=== PATIENT | female | born 1970 | race Caucasian/White ===

== ENCOUNTER 2023-08-29 21:49 | Day surgery (SDC) | payer OTHER ==
[2023-08-29] MEDS ORDERED: ONDANSETRON 4 MG/2 ML VIAL IVP STA (22:06)
[2023-08-29] MEDS ORDERED: SODIUM CHLORIDE 0.9% 1,000 ML IV STA (22:06)
[2023-08-29] MEDS ORDERED: MORPHINE 10 MG/ML VIAL IVP STA (22:06)
[2023-08-29 22:19] LABS: BASOPHILS % (AUTO) 0.2 %; EOSINOPHILS % (AUTO) 0.2 %; HCT - HEMATOCRIT 39.2 % (37.0-47.0); HGB - HEMOGLOBIN 11.7 g/dL (12.0-16.0); LYMPHOCYTES # (AUTO) 1.3 10^3/uL (1.5-3.5); LYMPHOCYTES % (AUTO) 11.8 %; MEAN CORPUSCULAR HEMOGLOBIN 22.4 pg (27.0-31.0); MEAN CORPUSCULAR HGB CONC 29.8 g/dL (32.0-36.0); MEAN CORPUSCULAR VOLUME 75.1 fL (81.0-99.0); MEAN PLATELET VOLUME 8.6 fL (7.9-10.8); MONOCYTES # (AUTO) 0.8 10^3/uL (0.0-1.0); MONOCYTES % (AUTO) 6.9 %; NEUTROPHILS # (AUTO) 8.8 10^3/uL (1.5-6.6); NEUTROPHILS % (AUTO) 80.7 %; PLT - PLATELET COUNT 400 10^3/uL (130-450); RED BLOOD COUNT 5.22 10^6/uL (4.20-5.40); RED CELL DISTRIBUTION WIDTH 17.2 % (12.0-15.0); WHITE BLOOD COUNT 10.9 x10^3/uL (4.8-10.8)
--- NOTE | 2023-08-29 22:31 | ED Physician Documentation ---
PD HPI ABD PAIN - Stated complaint Stated Complaint: ABD PX/N/V - Chief complaint Chief Complaint: Abd Pain - History obtained from History obtained from: Patient - Additional information Additional information: 53-year-old woman with mid abdominal pain intermittent for the past several days with associated nonbloody nonbilious nausea and vomiting x10 today. Denies dysuria, diarrhea, fever. Pain is sharp, intermittent, and patient has been unable to have a bowel movement for a few days now. Review of Systems Constitutional: denies: Fever Cardiac: denies: Chest pain / pressure Respiratory: denies: Dyspnea GI: reports: Abdominal Pain, Nausea, Vomiting. denies: Diarrhea : denies: Dysuria PD PAST MEDICAL HISTORY - Allergies Allergies/Adverse Reactions: Allergies Allergy/AdvReac Type Severity Reaction Status Date / Time No Known Drug Allergies Allergy Verified 08/29/23 22:03 PD ED PE NORMAL - Vitals Vital signs reviewed: Yes - General General: Alert and oriented X 3, Well developed/nourished, Other (Uncomfortable appearing) - HEENT HEENT: Atraumatic, PERRL, EOMI, Moist mucous membranes, Pharynx benign - Neck Neck: Supple, no meningeal sign - Cardiac Cardiac: Other (Tachycardic rate, regular rhythm) - Respiratory Respiratory: No respiratory distress, Clear bilaterally - Abdomen Abdomen: Other (Palpable ventral hernia, unable to reduce. Hardening over entire lower abdomen. Some distention of lower abdomen) - Back Back: No CVA TTP - Derm Derm: Normal color, Warm and dry Results - Vitals Vitals: Vital Signs - 24 hr 08/29/23 08/29/23 08/30/23 21:51 23:02 01:00 Temperature 37.0 C Heart Rate 120 H 90 104 H Respiratory 18 18 20 Rate Blood Pressure 130/117 H 129/79 131/85 H O2 Saturation 97 99 95 08/30/23 02:25 Temperature Heart Rate 100 Respiratory 16 Rate Blood Pressure 133/84 H O2 Saturation 96 Oxygen O2 Source Room air - Labs Labs: Laboratory Tests 08/29/23 08/29/23 08/29/23 22:15 22:15 22:15 WBC 10.9 H RBC 5.22 Hgb 11.7 L Hct 39.2 MCV 75.1 L MCH 22.4 L MCHC 29.8 L RDW 17.2 H Plt Count 400 MPV 8.6 Neut # (Auto) 8.8 H Lymph # (Auto) 1.3 L [place] # (Auto) 0.8 Eos # (Auto) 0.0 Baso # (Auto) 0.0 Absolute Nucleated RBC 0.00 Nucleated RBC % 0.0 Sodium 133 L Potassium 3.2 L Chloride 91 L Carbon Dioxide 26 Anion Gap 16.0 H BUN 24 H Creatinine 0.5 L Estimated GFR (MDRD) 129 Glucose 105 H Calcium 9.6 Magnesium 2.0 Total Bilirubin 0.6 AST 30 ALT 42 Alkaline Phosphatase 115 Total Protein 7.7 Albumin 4.7 Globulin 3.0 Albumin/Globulin Ratio 1.6 Lipase 20 PD Medical Decision Making - ED course ED course: 53-year-old woman presents with nonreducible ventral hernia and large lower abdominal mass, likely a uterine fibroid per CT. Discussed with Dr. Jeremy cohen n she has SBO on CT and he will admit to observation to reduce hernia under anesthesia in the morning. Departure - Departure Disposition: ED Place in Observation Clinical Impression: Ventral hernia, SBO (small bowel obstruction), Abdominal mass Condition: Stable Instructions: Hernia Surg Forms: PCP List
[2023-08-29 22:32] LABS: ALBUMIN 4.7 g/dL (3.2-5.5)
[2023-08-29 22:40] LABS: ALBUMIN/GLOBULIN RATIO 1.6 (1.0-2.2); BILIRUBIN,TOTAL 0.6 mg/dL (0.2-1.0); CALCIUM 9.6 mg/dL (8.5-10.3); CREATININE 0.5 mg/dL (0.6-1.3); POTASSIUM 3.2 mmol/L (3.5-4.5); TOTAL PROTEIN 7.7 g/dL (6.4-8.9)
[2023-08-29] MEDS ORDERED: LORazepam 2 MG/ML VIAL IVP STA (22:41)
[2023-08-29] MEDS ORDERED: POTASSIUM CHLOR 10 MEQ/100 ML 10 MEQ/100 ML BAG IV STA (22:42)
[2023-08-29] MEDS ORDERED: LORazepam 2 MG/ML VIAL ONE (23:53)
[2023-08-30] MEDS ORDERED: iohexoL-300 100 ML VIAL IVP ONE (00:43)
--- NOTE | 2023-08-30 01:02 | CT Report ---
PROCEDURE: ABDOMEN/PELVIS W INDICATIONS: ventral hernia CONTRAST: Omni 300 100ml TECHNIQUE: After the administration of intravenous contrast, 5 mm thick sections acquired from the diaphragms to the symphysis. 5 mm thick coronal and sagittal reformats were acquired. For radiation dose reducti on, the following was used: automated exposure control, adjustment of mA and/or kV according to yanet ent size. COMPARISON: None FINDINGS: Visualized lung bases: No pleural effusion. Liver and biliary tree: Nonspecific hypodense structures within the liver could represent cysts and/o r hemangiomata other etiologies not excludable. No biliary ductal dilation demonstrated. Gallbladder: No radiopaque cholelithiasis. Spleen: Unremarkable. Pancreas: Unremarkable. Adrenal glands: 3.2 cm left adrenal nodule Kidneys and ureters: No hydronephrosis. Gastrointestinal tract: Small bowel obstruction with transition point within a periumbilical hernia. Peritoneal cavity: Small amount of free fluid present within the periumbilical hernia sac and within the pelvis. Bladder: Unremarkable. Pelvic organs: Markedly enlarged uterus with multiple masses Vasculature: No abdominal aortic aneurysm. Lymph nodes: No highly suspicious lymph nodes visualized. Musculoskeletal: Degenerative change of the spine. IMPRESSION: 1. Small bowel obstruction with transition point within a periumbilical hernia. Small amount of free fluid present within the periumbilical hernia sac and within the pelvis, nonspecific, could indicate an element of venolymphatic compromise. 2. Markedly enlarged uterus with multiple masses, presumably fibroids. 3. A 3.2 cm left adrenal nodule is present. Further evaluation could be performed with nonemergent ad renal protocol CT without and with contrast. Reviewed by: Jim Merrill MD on 08/30/2023 1:01 AM PDT Approved by: Jim Merrill MD on 08/30/2023 1:01 AM PDT Station ID: [id number]
[2023-08-30] MEDS ORDERED: ONDANSETRON ODT 4 MG TABLET TL PRN (02:40)
[2023-08-30] MEDS ORDERED: ZOLPIDEM 5 MG TABLET PO PRN (02:40)
[2023-08-30] MEDS ORDERED: SODIUM CHLORIDE FLUSH 0.9% 10 ML SYRINGE IVP PRN (02:40)
[2023-08-30 04:00] LABS: GLUCOSE, URINE (UA) NEGATIVE (NEGATIVE); KETONES,URINE (UA) >=80 mg/dL (NEGATIVE); LEUKOCYTE ESTERASE, URINE NEGATIVE (NEGATIVE); NITRITE,URINE NEGATIVE (NEGATIVE); OCCULT BLOOD,URINE NEGATIVE (NEGATIVE); PROTEIN,URINE NEGATIVE (NEGATIVE); UROBILINOGEN,URINE 0.2 (NORMAL) E.U./dL (NORMAL)
[2023-08-30 04:04] LABS: BILIRUBIN,URINE NEGATIVE (NEGATIVE); CLARITY,URINE CLEAR (CLEAR); ICTOTEST,URINE NEGATIVE
[2023-08-30] MEDS: LACTATED RINGERS 1,000 ML IV SCH ×2 (04:10→20:09)
[2023-08-30] MEDS: HYDROmorphone 0.5 MG/0.5 ML SYRINGE IVP PRN ×5 (04:15→23:17)
[2023-08-30] MEDS ORDERED: SODIUM CHLORIDE 0.9% 1,000 ML IV ONE (07:43)
--- NOTE | 2023-08-30 08:34 | HISTORY & PHYSICAL EXAMINATION ---
Chief Complaint - Chief Complaint Chief Complaint: painful hernia bulge and nausea and vomiting History of Present Illness - History Obtained From Records Reviewed: yes History obtained from: pt Exam Limitations: none - History of Present Illness HPI Comment/Other: hernia periumbilical for years. hard and tender for several days and not able to eat food without nausea and vomiting for 5 days. feeling improved now since arrival to ED Meds/Allgy - Allergies Allergies/Adverse Reactions: Allergies Allergy/AdvReac Type Severity Reaction Status Date / Time No Known Drug Allergies Allergy Verified 08/29/23 22:03 Review of Systems - Other Findings Other Findings: 10 pt ros as above otherwise unremarkable Exam - Vital Signs Vital Signs: Vital Signs x48h Temp Pulse Pulse Resp BP BP Pulse Ox 08/30/23 07:52 36.5 C 106 H 18 144/80 H 98 08/30/23 04:12 36.9 C 96 16 147/77 H 96 08/30/23 02:25 100 16 133/84 H 96 08/30/23 01:00 104 H 20 131/85 H 95 - Physical Exam General Appearance: positive: No acute distress, Alert Eyes Bilateral: positive: PERRL, EOMI, No scleral icterus ENT: positive: No signs of dehydration Neck: positive: No JVD, Trachea midline Respiratory: positive: No respiratory distress Cardiovascular: positive: Regular rate & rhythm Abdomen: positive: Other (hard 5 cm hernia mass just cephalad of the umbilicus. minimal tenderness. benign abdomen other than large pelvic mass nearly 20 x 20 cm) Neurologic/Psychiatric: positive: Oriented x3 Conclusion/Plan - Problem List (1) SBO (small bowel obstruction) Conclusion/Plan: high grade sbo related to incarcerated ventral hernia. plan ex lap later today. parq held and verbal consent obtained ivf bolus for dehydration - Lab Results Fish Bones: 08/29/23 22:15 08/29/23 22:15
[2023-08-30] MEDS: SODIUM CHLORIDE FLUSH 0.9% 10 ML SYRINGE IVP SCH ×2 (09:27→22:28)
[2023-08-30] MEDS: SENNA 8.6 MG TABLET PO SCH (09:27)
--- NOTE | 2023-08-30 12:31 | ANESTHESIA ---
Pre-Anesthesia VS, & Labs - Diagnosis Ventral hernia - Procedure open ventral hernia repair Vital Signs: Temp Pulse Resp BP Pulse Ox O2 Flow Rate 36.5 C 106 H 18 144/80 H 98 08/30/23 07:52 08/30/23 07:52 08/30/23 07:52 08/30/23 07:52 08/30/23 07:52 Height: 5 ft Weight (kg): 61.235 kg Body Mass Index: 26.4 BMI Classification: Overweight - NPO >8 hours - Is Patient ?: No (menopause) - Lab Results Current Lab Results: Laboratory Tests 08/29/23 22:15: Magnesium 2.0 08/29/23 22:15: Sodium 133 L, Potassium 3.2 L, Chloride 91 L, Carbon Dioxide 26, Anion Gap 16.0 H, BUN 24 H, Creatinine 0.5 L, Estimated GFR (MDRD) 129, Glucose 105 H, Calcium 9.6, Total Bilirubin 0.6, AST 30, ALT 42, Alkaline Phosphatase 115, Total Protein 7.7, Albumin 4.7, Globulin 3.0, Albumin/Globulin Ratio 1.6, Lipase 20 08/29/23 22:15: WBC 10.9 H, RBC 5.22, Hgb 11.7 L, Hct 39.2, MCV 75.1 L, MCH 22.4 L, MCHC 29.8 L, RDW 17.2 H, Plt Count 400, MPV 8.6, Neut # (Auto) 8.8 H, Lymph # (Auto) 1.3 L, [place] # (Auto) 0.8, Eos # (Auto) 0.0, Baso # (Auto) 0.0, Absolute Nucleated RBC 0.00, Nucleated RBC % 0.0 Lab results reviewed: Yes Fish Bones: 08/29/23 22:15 08/29/23 22:15 Home Medications and Allergies Active Medications Hydromorphone HCl (Hydromorphone 0.5 Mg/0.5 Ml Syringe) 0.5 mg IVP Q2H PRN PRN Reason: Pain 8 to 10 Last Admin: 08/30/23 10:11 Dose: 0.5 mg Lactated Ringer's (Lr) 1,000 mls @ 100 mls/hr IV .Q10H TARI Last Admin: 08/30/23 04:10 Dose: 100 mls/hr Ondansetron HCl (Ondansetron Odt 4 Mg Tablet) 4 mg TL Q6HR PRN PRN Reason: Nausea / Vomiting Senna (Senna 8.6 Mg Tablet) 8.6 - 17.2 mg PO DAILY [facility] Last Admin: 08/30/23 09:27 Dose: 17.2 mg Sodium Chloride (Sodium Chloride Flush 0.9% 10 Ml Syringe) 10 ml IVP PRN PRN PRN Reason: NEEDED PER PROVIDER ORDERS Sodium Chloride (Sodium Chloride Flush 0.9% 10 Ml Syringe) 10 ml IVP 0100,0900,1700 [facility] Last Admin: 08/30/23 09:27 Dose: 10 ml Zolpidem Tartrate (Zolpidem 5 Mg Tablet) 5 mg PO QPM PRN PRN Reason: Insomnia Allergies/Adverse Reactions: Allergies Allergy/AdvReac Type Severity Reaction Status Date / Time No Known Drug Allergies Allergy Verified 08/29/23 22:03 Anes History & Medical History - Anesthetic History Anesthesia Complications: reports: No previous complications Family history of Anesthesia Complications: Denies Family history of Malignant Hyperthermia: Denies - Medical History Cardiovascular: reports: None Pulmonary: reports: None Gastrointestinal: reports: Other (ventral hernia, post reduction) Urinary: reports: None Neuro: reports: None Musculoskeletal: reports: None Endocrine/Autoimmune: reports: None Blood Disorders: reports: None Skin: reports: None Smoking Status: Never smoker Psychosocial: reports: No issues indicated History of Cancer?: No Exam General: Alert, Oriented x3, Cooperative Dental: Dentures full Upper (currently in), Dentures full Lower (out, at home) Mouth Openin Fingerbreadth Neck Mobility: Normal Mallampati classification: II Thyromental Distance: 4-6 cm Respiratory: Lungs clear, Normal breath sounds, No respiratory distress Cardiovascular: Regular rate (hx PVCs with anxiety) Plan Anesthesia Type: General Consent for Procedure(s) Verified and Reviewed: Yes Code Status: Attempt Resuscitation ASA classification: 2-Mild systemic disease Is this case an emergency?: Yes
[2023-08-30 12:33] LABS: CALCIUM 8.7 mg/dL (8.5-10.3); CREATININE 0.5 mg/dL (0.6-1.3); POTASSIUM 3.3 mmol/L (3.5-4.5)
[2023-08-30] MEDS ORDERED: ePHEDrine 50 MG/ML VIAL IVP PRN (13:32)
[2023-08-30] MEDS ORDERED: ATROPINE ABBOJECT 1 MG/10 ML SYRINGE IVP PRN (13:32)
[2023-08-30] MEDS ORDERED: METOCLOPRAMIDE 10 MG/2 ML VIAL IVP PRN (13:32)
[2023-08-30] MEDS ORDERED: MORPHINE 2 MG/ML CARPUJECT IVP PRN (13:32)
[2023-08-30] MEDS ORDERED: ONDANSETRON 4 MG/2 ML VIAL IVP PRN ×2 (13:32→19:08)
[2023-08-30] MEDS ORDERED: NALOXONE 0.4 MG/ML VIAL IVP PRN (13:32)
[2023-08-30] MEDS ORDERED: HYDROmorphone 0.5 MG/0.5 ML SYRINGE IVP PRN ×2 (13:32→19:08)
[2023-08-30] MEDS ORDERED: LACTATED RINGERS 1,000 ML IV SCH (14:00)
[2023-08-30] MEDS ORDERED: PROPOFOL 200 MG/20 ML VIAL IVP ONE ×2 (17:23→19:04)
[2023-08-30] MEDS ORDERED: DEXAMETHASONE 4 MG/ML VIAL ONE (17:25)
[2023-08-30] MEDS ORDERED: KETOROLAC 30 MG/ML VIAL ONE (17:25)
[2023-08-30] MEDS ORDERED: LIDOCAINE-PF 2% 10 ML AMP SUBQ ONE (17:25)
[2023-08-30] MEDS ORDERED: ROCURONIUM 50 MG/5 ML VIAL ONE (17:25)
[2023-08-30] MEDS ORDERED: ONDANSETRON 4 MG/2 ML VIAL ONE (17:25)
[2023-08-30] MEDS ORDERED: fentaNYL 100 MCG/2 ML VIAL ONE ×2 (17:30→19:37)
[2023-08-30] MEDS ORDERED: MIDAZOLAM 2 MG/2 ML VIAL ONE (17:30)
[2023-08-30] MEDS ORDERED: BUPIVACAINE 0.25% PF 30 ML VIAL ONE ×2 (17:53→18:43)
[2023-08-30] MEDS ORDERED: ceFAZolin 1 GM VIAL ONE (18:06)
[2023-08-30] MEDS ORDERED: ACETAMINOPHEN 1,000 MG/100 ML 1,000 MG/100 ML BAG IV ONE (18:14)
[2023-08-30] MEDS ORDERED: BUPIVACAINE 0.25% PF 30 ML VIAL SUBQ ONE (18:36)
[2023-08-30] MEDS ORDERED: SUGAMMADEX 200 MG/2 ML VIAL IVP ONE (19:04)
[2023-08-30] MEDS ORDERED: LACTATED RINGERS 200 ML IV ONE (19:06)
--- NOTE | 2023-08-30 19:16 | OPERATIVE REPORT ---
Operative Report - General Procedure Date: 08/30/23 Planned Procedure: laparotomy with release of bowel obstruction and repair incarcerated ventral hernia Pre-Op Diagnosis: incarcerated ventral hernia with high grade small bowel obstruction Procedure Performed: ex lap, lysis of adhesions, repair incarcerated ventral hernia without mesh Post Op Diagnosis: same - Procedure Note Primary Surgeon: jeana read Anesthesia Technique: General ET tube, Local Pathology: sac and scar tissue not sent Estimated Blood Loss (mL): 2 Drain/Tube Type: Other (none) Indications: high grade small bowel obstruction due to incarcerated ventral hernia Findings: viable small bowel large uterine mass Complications: none - Other Other Information/Narrative: The patient was prepped identified brought to the operating room and placed in supine position. Sequential compression devices were placed. She was prepped and draped in a sterile fashion and given preoperative antibiotics. She had a very firm nearly 6 cm hernia bulge just cephalad of the umbilicus. Local anesthetic was given. A 6 cm incision was made directly over the hernia mass and extended slightly left lateral of the umbilicus. Dissection proceeded very carefully sharply. She had bowel densely adherent to the hernia sac. The hernia sac was mobilized away from surrounding subcutaneous tissue down to the fascia. The hernia sac was then released at the fascial edges circumferentially. An edge of the hernia sac where it was not densely adherent to the bowel was opened and released. The bowel was tensely scarred within this very dense hernia sac. The bowel was viable. Small portion had chronic thickening. The bowel was reduced. Hemostasis was assured. She has a very large uterine mass as seen on preoperative CT scan and by exam. Local anesthetic was given. Fascia was closed with a running 0 PDS suture. Subcutaneous tissue was closed with interrupted 2-0 Vicryl suture. Buried inte rrupted subdermal 3-0 Vicryl sutures were then placed. Skin was closed with a running 4-0 Monocryl subcuticular suture. Dressing was applied. She was awakened and brought to recovery in good condition.
[2023-08-30] MEDS: fentaNYL 100 MCG/2 ML VIAL IVP PRN ×2 (19:30→19:35)
[2023-08-30] MEDS ORDERED: LACTATED RINGERS 1,000 ML IV ONE (19:41)
--- NOTE | 2023-08-30 19:49 | ANESTHESIA POST OP EVALUATION ---
Anesthesia Post Eval - Post Anesthesia Eval Vitals: Last Vital Signs Temp 36.1 C L 08/30/23 19:42 Pulse 92 08/30/23 19:42 Resp 14 08/30/23 19:42 BP 147/81 H 08/30/23 19:42 Pulse Ox 95 08/30/23 19:42 O2 Flow Rate CV Function Including HR & BP: Stable Pain Control: Satisfactory Nausea & Vomiting: Negative Mental Status: Baseline Respiratory Status: Airway Patent Hydration Status: Satisfactory Anesthesia Complications: None
[2023-08-31] MEDS: HYDROmorphone 0.5 MG/0.5 ML SYRINGE IVP PRN (02:49)
[2023-08-31] MEDS: SODIUM CHLORIDE FLUSH 0.9% 10 ML SYRINGE IVP SCH ×2 (02:49→09:13)
[2023-08-31] MEDS: HYDROcod/ACETAM 5/325 MG TABLET PO PRN ×2 (05:03→09:12)
[2023-08-31] MEDS: LACTATED RINGERS 1,000 ML IV SCH (05:12)
[2023-08-31] MEDS: SENNA 8.6 MG TABLET PO SCH (09:01)
[2023-08-31 09:14] VITALS: BP 142/71; O2SAT 94
--- NOTE | 2023-08-31 09:34 | Discharge Plan ---
Discharge Plan Problem Reviewed?: Yes Disposition: Home, Self Care Condition: Stable Prescriptions: HYDROcod/ACETAM 5/325 [[place] 5/325] 1 each PO Q6H PRN #30 tablet PRN Reason: Pain HYDROcod/ACETAM 5/325 [[place] 5/325] 1 each PO Q6H PRN #25 tablet PRN Reason: Pain Ondansetron Odt [Zofran Odt] 4 mg PO Q6H PRN #15 tablet PRN Reason: Nausea / Vomiting Ondansetron Odt [Zofran Odt] 4 mg PO Q6H PRN #10 tablet PRN Reason: Nausea / Vomiting Diet: Regular (slowly advance diet as tolerated. recommend liquid to soft diet for a few days) Shower Restrictions: No (ok to leave the dressing on for a week and shower and get the dressing wet) Driving Restrictions: Yes (no driving for a few days) Weight Bearing: Full Weight Instruction Topics: Hernia Surg No Smoking: If you smoke, Please STOP! Call for help. Follow-up with: Maxx Luna MD [Provider Admit Priv/Credential] -
--- NOTE | 2023-08-31 09:36 | DISCHARGE SUMMARY ---
"Discharge Summary Admit Date: 08/30/23 Discharge Date: 08/31/23 Discharging Provider: jeana read Code Status: Attempt Resuscitation Condition at Discharge: Good Discharge Facility Name: [facility] - DIAGNOSES Admission Diagnoses: incarcerated ventral hernia with small bowel obstruction Discharge Diagnoses with Status of Each Condition: same very large uterus - HPI History of Present Illness: progressive bowel obstruction symptoms for days. history hernia bulge for years - CONSULTS | PROCEDURES Procedures: exploratory laparotomy, release of small bowel obstruction and ventral hernia repair without mesh 08/30/2023 - HOSPITAL COURSE Hospital Course: doing well. tolerating clears well 08/31/2023 - ALLERGIES Allergies/Adverse Reactions: Allergies Allergy/AdvReac Type Severity Reaction Status Date / Time No Known Drug Allergies Allergy Verified 08/29/23 22:03 - MEDICATIONS Home Medications: Ambulatory Orders Medication Instructions Recorded Confirmed HYDROcod/ACETAM 5/325 [[place] 5/325] 1 each PO Q6H PRN #30 tablet 08/30/23 Ondansetron Odt [Zofran Odt] 4 mg PO Q6H PRN #15 tablet 08/30/23 HYDROcod/ACETAM 5/325 [[place] 5/325] 1 each PO Q6H PRN #25 tablet 08/31/23 Ondansetron Odt [Zofran Odt] 4 mg PO Q6H PRN #10 tablet 08/31/23 - PHYSICAL EXAM AT DISCHARGE General Appearance: positive: No acute distress, Alert Eyes Bilateral: positive: PERRL, EOMI, No scleral icterus Respiratory: positive: Chest non-tender Abdomen: positive: Non-tender Neurologic/Psychiatric: positive: Oriented x3 - LABS Result Diagrams: 08/29/23 22:15 08/30/23 11:56 - QUALITY (Female Hip Fx Only) Was patient sent home on osteoporosis medication?: No - FOLLOW UP Follow Up: surgery office in about a week call with any concerns and call to make an appointment [phone]"
== END 2023-08-31 11:00 | disposition home or self-care (01) ==
LOC: ED 21:49 → SDS 08-30 02:41 → MS2 08-30 02:41 → SDS 08-31 11:00
PROVIDERS: ATTEND Surgery
DX: K43.6 Other and unspecified ventral hernia with obstruction, without gangrene (principal)
CPT/HCPCS: 36415; 49594; 74177; 80048; 80053; 81003; 83690; 83735; 85025; 96374; 96375; 99284; 99285; A9270; J0131; J1170; J2060; J7120; Q9967; 81001; 87086